=== PATIENT | female | born 1995 | race Caucasian/White ===

== ENCOUNTER 2018-08-18 11:13 | Outpatient (CLI) | payer OTHER ==
--- NOTE | 2018-08-18 12:05 | Non Stress Test Report ---
Non Stress Test Datetime Report Generated by CPN: 08/18/2018 12:05 DEMOGRAPHIC EGA NST: 39.1 INDICATION Indication for Study: Ordered by Provider MONITORING Monitor Explained: Monitor Explained; Test Explained; Patient Verbalized Understanding Time on Monitor: 08/18/2018 11:31 Time off Monitor: 08/18/2018 12:00 NST Duration: 29 NST INTERVENTIONS NST Interventions: None Physician Notified NST: C. Schreiber, CNM BABY A: [id number] BABY A Movement : Present Contraction Frequency : none FHR Baseline : 135 Accelerations : 15X15 Decelerations : None Variability : Moderate 6-25bpm NST Review: Meets Criteria for Reactive NST NST Review and Verified By : Rob Dumont RNC NST Results: Reactive NST REPORT Report Trigger: Send Report
[2018-08-18 12:16] LABS: URINE AMPHETAMINES SCREEN NEGATIVE; URINE BARBITURATES SCREEN NEGATIVE; URINE BENZODIAZEPINES SCREEN NEGATIVE; URINE COCAINE SCREEN NEGATIVE; URINE MARIJUANA (THC) SCREEN NEGATIVE; URINE METHADONE SCREEN NEGATIVE; URINE PHENCYCLIDINE SCREEN NEGATIVE
== END 2018-08-18 12:08 | disposition home or self-care (01) ==
LOC: LC 11:13
PROVIDERS: ATTEND Obstetrics & Gynecology
PROC: 4A1HXCZ Monitoring of Products of Conception, Cardiac Rate, External Approach (ICD-10-PCS; principal; 2018-08-18)
DX: Z34.93 Encounter for supervision of normal pregnancy, unspecified, third trimester (principal)
CPT/HCPCS: 59025; 80307; 84112

== ENCOUNTER 2018-08-21 09:36 | Inpatient (IN) | payer OTHER ==
[2018-08-21] MEDS ORDERED: CEFAZOLIN 2 GM/D5W RTU 2 GM/50 ML RTUPB IV PRN (09:52)
[2018-08-21] MEDS ORDERED: RINGERS SOLUTION,LACTATED 1,000 ML IV ONE (10:07)
[2018-08-21 10:40] LABS: APPEARANCE,URINE CLOUDY; BILIRUBIN,URINE NEGATIVE (NEGATIVE); COLOR,URINE AMBER; GLUCOSE, URINE NEGATIVE (NEGATIVE); KETONES,URINE NEGATIVE (NEGATIVE); LEUKOCYTE ESTERASE,URINE LARGE (NEGATIVE); NITRITE,URINE NEGATIVE (NEGATIVE); PROTEIN,URINE 30 mg/dL (NEGATIVE); URINE SPECIFIC GRAVITY 1.024; UROBILINOGEN,URINE NEGATIVE mg/dL (<2.0)
[2018-08-21] MEDS: RINGERS SOLUTION,LACTATED 1,000 ML IV PRN ×2 (10:57→19:45)
[2018-08-21 11:00] LABS: URINE AMPHETAMINES SCREEN NEGATIVE; URINE BARBITURATES SCREEN NEGATIVE; URINE BENZODIAZEPINES SCREEN NEGATIVE; URINE COCAINE SCREEN NEGATIVE; URINE MARIJUANA (THC) SCREEN NEGATIVE; URINE METHADONE SCREEN NEGATIVE; URINE PHENCYCLIDINE SCREEN NEGATIVE
[2018-08-21 11:24] LABS: ABSOLUTE BASOPHILS # (AUTO) 0.1 10^3/uL (0.0-0.2); ABSOLUTE EOSINOPHILS # (AUTO) 0.1 10^3/uL (0.0-0.6); ABSOLUTE LYMPHOCYTES (AUTO) 1.8 10^3/uL (0.5-4.7); ABSOLUTE MONOCYTES (AUTO) 0.6 10^3/uL (0.1-1.4); ABSOLUTE NEUT (AUTO) 7.5 10^3/uL (1.7-8.2); BASOPHILS % (AUTO) 0.5 % (0-2); EOSINOPHILS % (AUTO) 0.8 % (0-6); HEMATOCRIT 32.8 % (36.0-47.0); HEMOGLOBIN 11.4 g/dL (12.0-15.5); LYMPHOCYTES % (AUTO) 17.7 % (13-45); MEAN CORPUSCULAR HEMOGLOBIN 31.1 pg (27.0-33.4); MEAN CORPUSCULAR HGB CONC 34.7 g/dL (32.0-36.0); MEAN CORPUSCULAR VOLUME 90 fl (80-97); MONOCYTES % (AUTO) 6.4 % (3-13); PLATELET COUNT 138 10^3/uL (150-450); RED BLOOD COUNT 3.66 10^6/uL (3.72-5.28); RED CELL DISTRIBUTION WIDTH 12.6 % (11.5-14.0); SEGMENTED NEUTROPHILS % (AUTO) 74.6 % (42-78); TOTAL CELLS COUNTED % (AUTO) 100 %; WHITE BLOOD COUNT 10.1 10^3/uL (4.0-10.5)
[2018-08-21] MEDS ORDERED: OXYTOCIN 10 UNIT/ML VIAL ONE (11:47)
[2018-08-21] MEDS ORDERED: BUPIVACAINE HCL/DEX-WATER/PF 15 MG/2 ML AMPULE ONE (11:48)
[2018-08-21] MEDS ORDERED: ONDANSETRON HCL INJ/PF 4 MG/2 ML SDV ONE (11:48)
[2018-08-21] MEDS ORDERED: OXYTOCIN/NORMAL SALINE 20 UNIT/1,000 ML RTUINJ ONE (11:48)
[2018-08-21] MEDS ORDERED: ACETAMINOPHEN 1,000 MG/100 ML RTUPB IV ONE (11:48)
[2018-08-21] MEDS ORDERED: MORPHINE SULFATE 10 MG/ML INJ IV PRN (12:31)
[2018-08-21] MEDS ORDERED: MEPERIDINE HCL/PF INJ 25 MG/1 ML DISP.SYRIN IV PRN (12:31)
[2018-08-21] MEDS ORDERED: DIPHENHYDRAMINE HCL 50 MG/ML VIAL IV PRN (12:31)
[2018-08-21] MEDS ORDERED: PROMETHAZINE HCL INJ 25 MG/1 ML VIAL IV PRN ×3 (12:31→13:47)
[2018-08-21] MEDS ORDERED: FENTANYL CITRATE INJ/PF 100 MCG/2 ML AMPUL IV PRN ×3 (12:31)
[2018-08-21] MEDS ORDERED: FENTANYL CITRATE INJ/PF 100 MCG/2 ML AMPUL ONE (13:13)
[2018-08-21] MEDS ORDERED: EPHEDRINE SULFATE INJ 50 MG/1 ML AMPULE ONE (13:13)
[2018-08-21] MEDS ORDERED: KETOROLAC TROMETHAMINE INJ/PF 30 MG/1 ML SDV ONE (13:13)
[2018-08-21] MEDS ORDERED: OXYCODONE-ACETAMINOPHEN 5-325 MG TABLET PO PRN (13:47)
[2018-08-21] MEDS ORDERED: HYDROMORPHONE HCL INJ/PF 2 MG/ML AMPULE IV PRN (13:47)
[2018-08-21] MEDS ORDERED: DIPH/PERTUSS(ACELL)/TETANUS VAC/PF 0.5 ML SYR (>=10YO) IM PRN (13:47)
[2018-08-21] MEDS ORDERED: OXYTOCIN/NORMAL SALINE 20 UNIT/1,000 ML RTUINJ IV PRN (13:47)
[2018-08-21] MEDS ORDERED: MEASLES,MUMPS&RUBELLA VACC/PF 0.5 ML VIAL SUBCUT PRN (13:47)
[2018-08-21] MEDS ORDERED: SIMETHICONE 80 MG TAB.CHEW PO PRN (13:47)
[2018-08-21] MEDS ORDERED: ACETAMINOPHEN 325 MG TABLET PO PRN (13:47)
[2018-08-21] MEDS ORDERED: ACETAMINOPHEN 1,000 MG/100 ML RTUPB IV PRN (13:47)
--- NOTE | 2018-08-21 13:51 | Brief Operative Note ---
BRIEF OPERATIVE REPORT DATE OF SURGERY: 08/21/18 TIME OF SURGERY: 13:00 PREOPERATIVE DIAGNOSIS: Breech Presentation, , 39+3, Rh negative, GBS positive POSTOPERATIVE DIAGNOSIS: MALINI - delivered SURGEON: XAVIER MIX FINDINGS: normal uterus, normal tubes and ovaries. Baby rank breech with body and nuchal cord tight. 3V cord. Time of 1226, weight 6#8oz. IVF 1000ml , UOP 75ml COMPLICATIONS: None ESTIMATED BLOOD LOSS: 520 TISSUE REMOVED OR ALTERED: placenta and cord TECHNICAL PROCEDURE: Primary section
[2018-08-21] MEDS: OXYCODONE-ACETAMINOPHEN 5-325 MG TABLET PO PRN ×2 (17:00→20:30)
[2018-08-21] MEDS: DOCUSATE SODIUM 100 MG CAPSULE PO SCH (17:36)
[2018-08-21] MEDS: KETOROLAC TROMETHAMINE INJ/PF 30 MG/1 ML SDV IV SCH (21:52)
[2018-08-22] MEDS: OXYCODONE-ACETAMINOPHEN 5-325 MG TABLET PO PRN ×4 (00:57→20:33)
--- NOTE | 2018-08-22 02:34 | PDOC DELIVERY SUMMARY ---
Delivery Summary - Maternal Hx : I Hx Para: 0 Hx # Term Pregnancies: 0 Hx # Pregnancies: 0 Hx Total # of Abortions (Sponateous & Elective): 0 Number of Living Children: 0 REINA: 08/25/18 Gestational Age: 39.2 Risk Factors: Other - breech Ruptured Membranes: AROM Time of Rupture: 12:24 Fluids: Clear - Delivery Labor: Not In Labor Presentation: Breech Heart Rate Monitoring: Done Pre-Operatively Support Person Present: Yes Location: OR : Scheduled Placenta: Within Normal Limits Placenta Description: normal Number of Vessels (Cord): 3 Nuchal Cord: Yes - nuchal and body Delivery of Placenta Date: 08/21/18 Delivery of Placenta Time: 12:27 Delivery Quantitative Blood Loss (QBL): 520 - Medications Type of Anesthesia:: Spinal - Assess and Care Baby 1 Female Delivery of Infant Date: 08/21/18 Delivery of Infant Time: 12:26 at 1 minute: 7 at 5 minutes: 9 Preprinted Number On Band: [id number] Skin to Skin: Yes Skin to Skin (Mins): 10 To Nursery At: 12:46 Mode of Transport: Bassinet Infant Delivery Weight: 2,955 - Delivery Personnel Food Tray Assembler: CHRISTOPH SANTOS RN: RON ROWLEY RN: DHAVAL DUDLEY MD: XAVIER MIX
--- NOTE | 2018-08-22 02:45 | Operative Report ---
Operative Report DATE OF SURGERY: 08/21/18 PREOPERATIVE DIAGNOSIS: Breech Presentation, , 39+3, Rh negative, GBS positive POSTOPERATIVE DIAGNOSIS: MALINI - delivered OPERATION: Primary section SURGEON: XAVIER MIX ANESTHESIA: Spinal TISSUE REMOVED OR ALTERED: placenta and cord COMPLICATIONS: None ESTIMATED BLOOD LOSS: 520 INTRAOPERATIVE FINDINGS: normal uterus, normal tubes and ovaries. Baby rank breech with body and nuchal cord tight. 3V cord. VFI delivered at 1226 on 08/21, weight 6#8oz. IVF 1000ml, UOP 75ml PROCEDURE: Anesthesia provider: [Romeo Banks MD, Cierra Smalls NAILING MACHINE OPERATOR] Urine output: [75ml] IV fluids: [1000ml] Indications: [23yo at 39+3ega in persistent nasim breech presentation. Reviewed options and offered an external cephalic version. The patient declines external cephalic version and desires Primary section for persistent breech presentation. The risks, benefits, alternatives were reviewed and she desires to proceed with planned procedure.] Procedure: The patient was taken to the operating room where spinal anesthesia was obtained and found to be adequate. She was then prepped and draped in the normal sterile fashion and placed in the dorsal supine position with a leftward tilt. A Pfannenstiel skin incision was then made and carried through to the underlying layers of the fascia with the scalpel. The fascia was incised in the midline and the incision extended laterally with the Garcia scissors. The superior aspect of the fascial incision was then grasped with thomas clamps elevated and the underlying rectus muscles dissected off [bluntly]. Attention was then turned to the inferior aspect of the fascial incision which in a similar fashion was grasped, tented up with Thomas clamps, and the rectus muscles dissected off [bluntly]. The rectus muscles were then in the midline and the peritoneum at the amount identified and entered [bluntly]. The peritoneal incision was then extended superiorly and inferiorly with good visualization of the bladder. The bladder blade was inserted and the vesicouterine peritoneum identified grasped with [place] pickups and entered sharply with the Metzenbaum scissors. This incision was then extended laterally with the Metzenbaum scissors and a bladder flap created digitally. The bladder blade was then reinserted and the lower uterine segment incised in a transverse fashion with the scalpel. The uterine incision was then extended bluntly. The bladder blade was removed and the infant was delivered from nasim breech presentation atraumatically. The nose and mouth were suctioned and the cord doubly clamped and cut. And the was handed off to waiting pediatricians. The placenta was then delivered spontaneously and the uterus exteriorized and cleared of all clots and debris. The uterine incision was then repaired with 1- 0 Vicryl in a running locked fashion. A second layer of the same suture was used to obtain hemostasis via imbrication of the initial layer. The bladder flap was then repaired with 3-0 chromic in a running fashion. The uterus was returned to the patient's abdomen and Interceed was placed overlying the uterine incision to prevent adhesions. The gutters were cleared of all clots and debris. All operative sites were noted to be hemostatic. The fascia was reapproximated with 0 Vicryl in a running fashion from each lateral edge to the midline. The skin was closed with 3-0 Monocryl in a running subcuticular fashion with overlying Dermabond for additional dressing as well as wound closure. The patient tolerated the procedure well. Sponge lap needle and instrument counts are correct times 2. 2 g of Ancef were given prior to skin incision. The patient was taken to the recovery area awake and in stable condition.
[2018-08-22] MEDS: RINGERS SOLUTION,LACTATED 1,000 ML IV PRN (04:28)
[2018-08-22] MEDS: KETOROLAC TROMETHAMINE INJ/PF 30 MG/1 ML SDV IV SCH ×2 (05:25→14:50)
[2018-08-22 06:06] LABS: HEMATOCRIT 28.8 % (36.0-47.0); HEMOGLOBIN 9.9 g/dL (12.0-15.5); MEAN CORPUSCULAR HEMOGLOBIN 30.5 pg (27.0-33.4); MEAN CORPUSCULAR HGB CONC 34.4 g/dL (32.0-36.0); MEAN CORPUSCULAR VOLUME 89 fl (80-97); PLATELET COUNT 129 10^3/uL (150-450); RED BLOOD COUNT 3.26 10^6/uL (3.72-5.28); RED CELL DISTRIBUTION WIDTH 12.7 % (11.5-14.0); WHITE BLOOD COUNT 17.9 10^3/uL (4.0-10.5)
[2018-08-22] MEDS: DOCUSATE SODIUM 100 MG CAPSULE PO SCH ×2 (09:54→17:11)
[2018-08-22] MEDS: PRENATAL VITAMIN W DHA CAPSULE PO SCH (09:54)
--- NOTE | 2018-08-22 10:32 | PDOC PROGRESS REPORT ---
Subjective-OB Progress Note for:: 08/22/18 Subjective: POD #1, s/p Primary for breech. Pt doing well, , no complaints. Physical Exam (OB) Vital Signs: Temp Pulse Resp BP Pulse Ox 98.3 F 78 16 105/48 L 98 08/22/18 07:30 08/22/18 07:30 08/22/18 07:30 08/22/18 07:30 08/22/18 10:08 Intake & Output 08/21/18 08/22/18 08/23/18 06:59 06:59 06:59 Intake Total 3673 Output Total 2340 Balance 1333 Weight 96.162 kg - General General Appearance: Appears well, Alert In distress: None - Dressing Removed: Yes Incision: Dressing, Well Approximated Closure Type: Surgical Glue - Lochia Lochia Amount: Small 10-25 ml Lochia Color: Rubra/Red - Abdomen Hernia Present: No Fundal Description: Firm Fundal Height: u/u - u/2 - Respiratory Respiratory Status: No respiratory distress Breath sounds: Clear - Cardiovascular Rhythm: Regular Heart Sounds: Normal auscultation - Abdominal Inspection: Normal Distension: No distension, Other - +bowel sounds Tenderness: Nontender - Genitourinary Genitourinary Note: voiding - Extremities Upper extremity: Normal inspection Lower extremities: Normal inspection - Neurological Cognition: Normal Orientation: AAOx4 - Psychological Associated symptoms: Normal affect, Normal mood - Skin Skin Temperature: Warm Skin Moisture: Dry Objective-Diagnostic Laboratory: 08/22/18 05:55 08/21/18 08/21/18 08/21/18 10:10 10:58 10:58 WBC 10.1 RBC 3.66 L Hgb 11.4 L Hct 32.8 L MCV 90 MCH 31.1 MCHC 34.7 RDW 12.6 Plt Count 138 L Seg Neutrophils % 74.6 Lymphocytes % 17.7 Monocytes % 6.4 Eosinophils % 0.8 Basophils % 0.5 Absolute Neutrophils 7.5 Absolute Lymphocytes 1.8 Absolute Monocytes 0.6 Absolute Eosinophils 0.1 Absolute Basophils 0.1 Urine Color ALINA Urine Appearance CLOUDY Urine pH 6.0 Ur Specific Meta 1.024 Urine Protein 30 H Urine Glucose (UA) NEGATIVE Urine Ketones NEGATIVE Urine Blood NEGATIVE Urine Nitrite NEGATIVE Ur Leukocyte Esterase LARGE H Blood Type B NEGATIVE Antibody Screen NEGATIVE 08/22/18 05:55 WBC 17.9 H RBC 3.26 L Hgb 9.9 L Hct 28.8 L MCV 89 MCH 30.5 MCHC 34.4 RDW 12.7 Plt Count 129 L Seg Neutrophils % Lymphocytes % Monocytes % Eosinophils % Basophils % Absolute Neutrophils Absolute Lymphocytes Absolute Monocytes Absolute Eosinophils Absolute Basophils Urine Color Urine Appearance Urine pH Ur Specific Meta Urine Protein Urine Glucose (UA) Urine Ketones Urine Blood Urine Nitrite Ur Leukocyte Esterase Blood Type Antibody Screen Assessment and Plan(PN) - Assessment and Plan (1) Anemia, Is this a current diagnosis for this admission?: Yes (2) Breech presentation Qualifiers: Fetus number: single or unspecified fetus Qualified Code(s): O32.1XX0 - Maternal care for breech presentation, not applicable or unspecified Is this a current diagnosis for this admission?: Yes (3) Carrier of group B Streptococcus Is this a current diagnosis for this admission?: Yes (4) Status post primary low transverse section Is this a current diagnosis for this admission?: Yes - Time Spent with Patient Time with patient: Less than 15 minutes Medications reviewed and adjusted accordingly: Yes - Disposition Anticipated Discharge: Home Within: within 48 hours
[2018-08-22] MEDS: FERROUS SULFATE 325 MG TABLET PO SCH ×2 (12:21→17:11)
[2018-08-22] MEDS: IBUPROFEN 800 MG TABLET PO SCH ×2 (17:11→23:53)
[2018-08-23] MEDS: IBUPROFEN 800 MG TABLET PO SCH ×2 (05:15→13:21)
[2018-08-23] MEDS: FERROUS SULFATE 325 MG TABLET PO SCH ×2 (08:16→13:22)
[2018-08-23] MEDS: PRENATAL VITAMIN W DHA CAPSULE PO SCH (10:31)
[2018-08-23] MEDS: DOCUSATE SODIUM 100 MG CAPSULE PO SCH (10:31)
--- NOTE | 2018-08-23 10:42 | PDOC DISCHARGE SUMMARY ---
Final Diagnosis Discharge Date: 08/23/18 - POD #2, doing well, s/p for breech, , desires to go home today - Final Diagnosis (1) Anemia, Is this a current diagnosis for this admission?: Yes (2) Breech presentation Is this a current diagnosis for this admission?: Yes (3) Carrier of group B Streptococcus Is this a current diagnosis for this admission?: Yes (4) Status post primary low transverse section Is this a current diagnosis for this admission?: Yes Discharge Data - Discharge Medication Prescriptions: Ibuprofen [Motrin 800 mg Tablet] 800 mg PO Q6 #60 tablet Oxycodone HCl/Acetaminophen [Percocet 5-325 mg Tablet] 1 tab PO Q4HP PRN #30 tablet PRN Reason: Home Medications: Pnv No.95/Ferrous Fum/Folic AC [ Vitamins Tablet] 1 each PO DAILY Omeprazole Magnesium [Prilosec Otc] 1 tab PO DAILY PRN 08/21/18 Ibuprofen [Motrin 800 mg Tablet] 800 mg PO Q6 #60 tablet 08/23/18 Oxycodone HCl/Acetaminophen [Percocet 5-325 mg Tablet] 1 tab PO Q4HP PRN #30 tablet 08/23/18 Reason(s) for Admission: Ceasarean Section-Primary Procedures: NST, Ultrasound Intrapartum Procedure(s): : Low Cervical, Transverse - Diagnosis Test Laboratory: Temp Pulse Resp BP Pulse Ox 98.1 F 72 14 118/62 98 08/23/18 07:40 08/23/18 07:40 08/23/18 07:40 08/23/18 07:40 08/23/18 07:40 08/21/18 08/21/18 08/22/18 10:10 10:58 05:55 RBC 3.66 L 3.26 L Hgb 11.4 L 9.9 L Hct 32.8 L 28.8 L Urine Opiates Screen NEGATIVE - Discharge information/Instructions Discharge Activity: Activity As Tolerated, No Driving, No Lifting Over 10 Pounds , Pelvic Rest Discharge Diet: As Tolerated, Regular Disposition: HOME, SELF-CARE Follow up with: [facility] in: 1, Weeks
[2018-08-23 13:04] VITALS: BP 131/71
== END 2018-08-23 16:10 | disposition home or self-care (01) | DRG 787 ==
LOC: 2S 09:36
PROVIDERS: ADMIT Student in an Organized Health Care Education/Training Program; ATTEND Student in an Organized Health Care Education/Training Program
PROC: 10D00Z1 Extraction of Products of Conception, Low, Open Approach (ICD-10-PCS; principal; 2018-08-21 11:45)
DX: O32.1XX0 Maternal care for breech presentation, not applicable or unspecified (principal); O36.0930 Maternal care for other rhesus isoimmunization, third trimester, not applicable or unspecified; O99.824 Streptococcus B carrier state complicating childbirth; O69.81X0 Labor and delivery complicated by cord around neck, without compression, not applicable or unspecified; O99.334 Smoking (tobacco) complicating childbirth; F17.211 Nicotine dependence, cigarettes, in remission; Z3A.39 39 weeks gestation of pregnancy; Z37.0 Single live birth
CPT/HCPCS: 1961; 36415; 59025; 80307; 81005; 85025; 85027; 86592; 86850; 86900; 86901; 94799; C1765; J0131; J0690; J1885; J2405; J2590; J3010; J3490; J7120